=== PATIENT | male | born 1985 | race African-American/Black ===

== ENCOUNTER 2017-02-17 13:26 | Emergency (ER) | payer BC ==
[~2017-02-17] VITALS: Ht 182.9 cm; Wt 100.0 kg
[2017-02-17 13:28] VITALS: BP 146/101; PULSE 68; RESP 15; TEMP 98.2; O2SAT 99
--- NOTE | 2017-02-17 15:43 | PD ---
HPI Chief Complaint: Back/ Neck Pain or Injury Time Seen by Provider: 15:43 Travel History International Travel<30 days: No Contact w/Intl Traveler<30days: No Traveled to known affect area: No History of Present Illness HPI 31-year-old Afro[place] male with apparent MR since emergency Department with his mom with reports of to 3 week history of low back pain and stiffness. Is getting progressively worsened to the point where he was unable to go to work today. He describes it as a sharp pain across the lower lumbar spine. He denies urinary symptoms. He denies abdominal pain, nausea, vomiting, or diarrhea. 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 Mom states she did not know about this complaint until today. He has not tried heat, ice, ibuprofen, or Tylenol. Patient is allergic to insects. PFSH Past Medical History Medical History: Denies Significant Hx Resp. Syncytial Virus (RSV): Yes Tetanus Vaccination: < 5 Years Past Surgical History Surgical History: No Previous Surgery Social History Alcohol Use: No Tobacco Use: No Substance Use: No Allergies-Medications (Allergen,Severity, Reaction): Uncoded Allergies: INSECTS (Allergy, Unknown, 02/17/17) Reported Meds & Prescriptions Reported Meds & Active Scripts Active No Active Prescriptions or Reported Medications Review of Systems Except as stated in HPI: all other systems reviewed are Neg General / Constitutional: No: Fever Eyes: No: Visual changes HENT: No: Headaches Cardiovascular: No: Chest Pain or Discomfort Respiratory: No: Shortness of Breath Gastrointestinal: No: Abdominal Pain Genitourinary: No: Dysuria Musculoskeletal: Positive: Myalgias, Arthralgias, Pain, No: Limited ROM Skin: No Rash Neurologic: No: Weakness Psychiatric: No: Depression Endocrine: No: Polydipsia Hematologic/Lymphatic: No: Easy Bruising Physical Exam Narrative GENERAL: Patient is in good spirits and in no obvious distress. SKIN: Warm and dry. Normal color. Normal turgor. No rash. HEAD: Atraumatic. Normocephalic. EYES: Pupils equal and round. No scleral icterus. No injection or drainage. ENT: No nasal bleeding or discharge. Mucous membranes pink and moist. Pharynx is clear. Airway is patent. NECK: Trachea midline. Supple nontender. CARDIOVASCULAR: Regular rate and rhythm. RESPIRATORY: No accessory muscle use. Clear to auscultation. Breath sounds equal bilaterally. GASTROINTESTINAL: Abdomen soft, non-tender, nondistended. Hepatic and splenic margins not palpable. No CVA tenderness. MUSCULOSKELETAL: Extremities without clubbing, cyanosis, or edema. No obvious deformities. Patient has diffuse soft tissue tenderness to the posterior lumbar region bilaterally. Straight leg raise pain bilaterally. He is able to dorsiflex and plantar flex without difficulty. He is able to ambulate without difficulty. NEUROLOGICAL: Awake and alert. No obvious cranial nerve deficits. Motor grossly within normal limits. Five out of 5 muscle strength in the arms and legs. Normal speech. PSYCHIATRIC: Appropriate mood and affect; insight and judgment normal. Data Data Last Documented VS Vital Signs Date Time Temp Pulse Resp B/P Pulse Ox O2 Delivery O2 Flow Rate FiO2 02/17/17 13:28 98.2 68 15 146/101 99 Orders Urinalysis - C+S If Indicated (02/17/17 16:01) Ibuprofen (Motrin) (02/17/17 16:15) Acetaminophen (Tylenol) (02/17/17 16:15) Labs Laboratory Tests Test 02/17/17 16:10 Urine Color YELLOW Urine Turbidity CLEAR Urine pH 5.5 Urine Specific [place] 1.022 Urine Protein NEG mg/dL Urine Glucose (UA) NEG mg/dL Urine Ketones NEG mg/dL Urine Occult Blood NEG Urine Nitrite NEG Urine Bilirubin NEG Urine Urobilinogen LESS THAN 2.0 MG/DL Urine Leukocyte Esterase NEG Urine RBC LESS THAN 1 /hpf Urine WBC 1 /hpf Urine Mucus FEW /lpf Microscopic Urinalysis Comment CULT NOT INDICATED MDM Medical Decision Making Medical Screen Exam Complete: Yes Emergency Medical Condition: Yes Differential Diagnosis Lumbago. Muscle skeletal pain. Possible renal colic. Narrative Course Patient is given ibuprofen 600 mg as well as Tylenol 650 mg by mouth. Urinalysis is performed to rule out hematuria and/or infection. Urinalysis negative. Patient is felt to have muscle skeletal pain. He'll be treated empirically with ibuprofen and Tylenol, prescriptions are given. Patient is to use heat followed by ice and gentle stretching as discussed. Patient to follow up with his primary care physician as needed. Diagnosis Primary Impression: Acute low back pain without sciatica Qualified Code: M54.5 - Acute bilateral low back pain without sciatica Referrals: Primary Care Physician Patient Instructions: Acute Low Back Pain (ED), General Instructions, Lower Back Exercises (ED) Additional Instructions: Patient is felt to have muscle skeletal pain. He'll be treated empirically with ibuprofen and Tylenol, prescriptions are given. Patient is to use heat followed by ice and gentle stretching as discussed. Patient to follow up with his primary care physician as needed. Med/Other Pt SpecificInfo: Prescription(s) given Scripts Ibuprofen 600 Mg Ket542 Mg PO Q6H PRN (Pain/Inflammation) #40 TAB Prov:Reece Portillo MD 02/17/17 Acetaminophen (Non-Aspirin Pain Relief ES)500 Mg Tab1-2 Tab PO Q6HR PRN (PAIN) # 60 TAB Prov:Reece Portillo MD 02/17/17 Disposition: 01 DISCHARGE HOME Condition: Stable Phong Ferris Feb 17, 2017 15:43
[2017-02-17] MEDS ORDERED: ACETAMINOPHEN 325 MG TAB PO ONE (16:15)
[2017-02-17] MEDS ORDERED: IBUPROFEN 600 MG TAB PO ONE (16:15)
[2017-02-17 16:44] LABS: BLOOD, URINE NEG (NEG); COMMENT (UR) CULT NOT INDICATED; CULTURE IF INDICATED CULT NOT INDICATED; GLUCOSE,URINE NEG (NEG); KETONE, URINE NEG (NEG); MUCUS URINE FEW /lpf (OCC); NITRITE,URINE NEG (NEG); PH, URINE 5.5 (5.0-8.5); URINE COLOR YELLOW (YELLW/STRAW)
[2017-02-17] MEDS ORDERED: IBUP-232 PO (17:14)
[2017-02-17] MEDS ORDERED: NON-500T13 PO (17:14)
== END 2017-02-17 18:23 | disposition home or self-care (01) ==
LOC: NEPD 13:26
DX: M54.5 Low back pain (principal)
CPT/HCPCS: 81001; 99283